=== PATIENT | female | born 1995 | race Caucasian/White ===

== ENCOUNTER → 2017-12-12 | Outpatient (CLI) | payer OTHER ==
[2017-12-16 11:41] LABS: VARICELLA ZOS VIR IGG VALUE <135.00 INDEX
== END | disposition home or self-care (01) ==
LOC: C.LAB 16:25
PROVIDERS: ATTEND Family Medicine
DX: Z02.0 Encounter for examination for admission to educational institution (principal)

== ENCOUNTER → 2018-04-30 | Outpatient (CLI) | payer OTHER ==
[2018-05-05 16:31] LABS: VARICELLA ZOS VIR IGM AB <=0.90 (<=0.90)
== END | disposition home or self-care (01) ==
LOC: C.LABBC 15:04
PROVIDERS: ATTEND Family Medicine
DX: Z02.0 Encounter for examination for admission to educational institution (principal)